=== PATIENT | female | born 1960 | race Two or more races ===

== ENCOUNTER 2017-06-21 08:53 | Day surgery (SDC) | payer OTHER ==
[2017-06-21] MEDS ORDERED: MIDAZOLAM 1 MG/ML 2 ML INJ ×2 (10:44→10:45)
[2017-06-21] MEDS ORDERED: FENTAnyl 50 MCG/ML VIAL (10:44)
== END 2017-06-21 16:05 | disposition home or self-care (01) ==
LOC: GIL 08:53
DX: Z12.11 Encounter for screening for malignant neoplasm of colon (principal); K64.4 Residual hemorrhoidal skin tags; K64.8 Other hemorrhoids
CPT/HCPCS: 45378